=== PATIENT | female | born 1995 | race Two or more races ===

== ENCOUNTER 2023-08-15 09:12 | Emergency (ER) | payer MEDICAID ==
[~2023-08-15] VITALS: Ht 154.9 cm; Wt 84.8 kg
[2023-08-15 09:23] VITALS: BP 137/78; TEMP 98.7; O2SAT 98
[2023-08-15] MEDS ORDERED: BENZ-13 PO (10:34)
[2023-08-15] MEDS ORDERED: IBUP-1955 PO (10:34)
[2023-08-15] MEDS ORDERED: FLUCONAZOLE (100 MG) 100 MG TABLET ONE (10:42)
[2023-08-15] MEDS: FLUCONAZOLE (100 MG) 100 MG TABLET PO ONE (10:45)
== END 2023-08-15 10:50 | disposition home or self-care (01) ==
LOC: ER 09:23
DX: B37.31 Acute candidiasis of vulva and vagina (principal); R07.89 Other chest pain; R05.9 Cough, unspecified
CPT/HCPCS: 71045-TC